=== PATIENT | male | born 2000 | race Caucasian/White ===

== ENCOUNTER 2020-05-12 11:01 | Emergency (ER) | payer OTHER, SELFPAY ==
--- NOTE | ~2020-05-12 | XR_ITS ---
EXAMINATION: XR chest 2V DATE: 05/12/2020 12:34 INDICATION: Cough and shortness of breath TECHNIQUE: Frontal and lateral views of the chest are obtained COMPARISON: None available FINDINGS: The lungs are free of acute opacities. There is no pleural effusion or pneumothorax. The ca rdiomediastinal silhouette is normal. The visualized bones and soft tissues are unremarkable. IMPRESSION: 1. No acute cardiopulmonary abnormality. Reviewed, dictated and finalized at location A.
[2020-05-12 11:12] VITALS: BP 128/79; PULSE 74; RESP 17; TEMP 36.8; O2SAT 99
--- NOTE | 2020-05-12 11:15 | ECG_ITS ---
Measurements Intervals Arnold Rate: 72 P: -8 OK: 130 QRS: 77 QRSD: 80 T: 47 QT: 362 QTc: 396 Interpretive Statements SINUS RHYTHM NORMAL ECG Electronically Signed On 05-12-2020 14:07:37 CDT by Matthew Charlton D.O.
[2020-05-12 11:37] LABS: Basophils Percent Auto 0.5 % (0.2-1.2); Eosinophils Absolute Auto 0.2 K/mm3 (0-0.3); Eosinophils Percent Auto 2.1 % (0-4.4); Hematocrit 46.5 % (42.0-52.0); Hemoglobin 15.8 g/dL (14.0-18.0); Immature Granulocyte Absolute 0.01 K/mm3 (0.00-0.031); Immature Granulocyte Percent A 0.1 % (0-0.5); Lymphocytes Absolute Auto 1.71 K/mm3 (0.9-3.2); Lymphocytes Percent Auto 22.9 % (18.3-44.2); Mean Corpuscular Hemoglobin 29.8 pg (26-34); Mean Corpuscular Volume 87.6 fl (80-100); Mean Platelet Volume 11.5 fl (7.4-10.4); Monocytes Absolute Auto 0.6 K/mm3 (0.1-0.6); Monocytes Percent Auto 7.5 % (2.6-8.5); Neutrophils Percent Auto 66.9 % (45.5-73.1); Platelet Count Result 208 k/mm3 (150-375); Red Blood Count 5.31 M/mm3 (4.6-6.20); White Blood Count 7.5 K/mm3 (4.5-10.0)
[2020-05-12 11:48] LABS: INR 0.9; Prothrombin Time 11.6 Seconds (11.1-14.7)
[2020-05-12 11:49] LABS: Blood Urea Nitrogen 14 mg/dL (9-20); Calcium 9.2 mg/dL (8.4-10.2); Carbon Dioxide 26 mmol/L (22-30); Chloride 104 mmol/L (98-107); Estimated CRCL calculation 104 ml/min; Estimated Glomerular Filt Rate > 60; Glucose 114 mg/dL (75-110); Partial Thromboplastin Time 27.6 SECONDS (22.3-36.8); Potassium 4.2 mmol/L (3.4-5.0); Sodium 138 mmol/L (137-145)
--- NOTE | 2020-05-12 11:56 | ED.GENADULT ---
HPI - General Adult General Chief complaint: Unspecified Stated complaint: multiple complaints x1 week Time Seen by Provider: 05/12/20 11:56 Source: patient and family Mode of arrival: ambulatory Limitations: no limitations History of Present Illness HPI narrative: Patient is a 20-year-old male who presents for evaluation of chest pain, shortness of breath. Patient states symptoms have been ongoing over the past month. He reports cough with some wheezing. Patient does vape and uses marijuana daily. Patient denies fever or chills. He reports a sore sensation in his chest. Patient's mother has a history of factor V Leiden, there is a history of blood clot in the family. Patient has no history of blood clot. He is not on any anticoagulation. No chest wall trauma. No fever or chills. No current shortness of breath. Patient also denies any current chest pain, he states the pain is very spontaneous and does not necessarily occur with exertion. No syncopal events. No current lightheadedness or dizziness. No calf pain or tenderness. Patient does not have any history of asthma. Related Data Allergies Allergy/AdvReac Type Severity Reaction Status Date / Time No Known Allergies Allergy Verified 05/12/20 11:14 Review of Systems Review of Systems: Narrative: CONSTITUTIONAL: Denies fever, chills, or sweats. EYES: Denies visual changes, redness, or discharge. ENT: Denies rhinorrhea, congestion, sore throat, or otalgia. CARDIOVASCULAR: Reports chronic chest pain, denies palpitations or edema RESPIRATORY: Denies cough, reports intermittent shortness of breath GASTROINTESTINAL: Denies abdominal pain, nausea, vomiting, or diarrhea. GENITOURINARY: Denies dysuria or hematuria. SKIN: Denies rash or itching. MUSCULOSKELETAL: Denies back pain, joint pain, or myalgia. NEUROLOGIC: Denies headache, numbness, or weakness. [facility] Past Medical History Medical History (Updated 05/12/20 @ 13:15 by Amy Barone MD) No pertinent past medical history Surgical History Surgical History (Updated 05/12/20 @ 13:12 by Amy Barone MD) History of appendectomy Social History Social History (Updated 05/12/20 @ 13:13 by Amy Barone MD) Smoking status: Current every day smoker Tobacco type: e-cigarettes/vaping Alcohol intake: never Substance use: current Substance use type: marijuana Gender identity (if verbalized by the patient): Male Exam Narrative: Exam Narrative: GENERAL: Awake, alert, conversant HEAD: Normocephalic, atraumatic. EYES: PERRLA and EOMI. ENT: Nares clear, no rhinorrhea or epistaxis. Mucous membranes moist. NECK: Supple. CHEST: No respiratory distress, breathing even and non labored, no chest wall tenderness, no wheezing HEART: Regular rate, sinus rhythm ABDOMEN:Non distended, non tender EXTREMITIES: Normal range of motion. No edema. No calf tenderness bilaterally. SKIN: Warm, dry, no rash. NEURO:No focal deficits. Alert and oriented x3 Course Vital Signs Vital signs: Vital Signs Temperature 36.8 C 05/12/20 11:12 Pulse Rate 74 05/12/20 11:12 Respiratory Rate 17 05/12/20 11:12 Blood Pressure 128/79 05/12/20 11:12 Pulse Oximetry 99 05/12/20 11:12 Temperature 36.8 C 05/12/20 11:12 Pulse Rate 73 05/12/20 12:21 Respiratory Rate 16 05/12/20 12:21 Blood Pressure 128/79 05/12/20 11:12 Pulse Oximetry 100 05/12/20 12:20 Medical Decision Making MDM Narrative Medical decision making narrative: Patient's EKG and labs are without significant high risk changes. Cardiac risk factors reviewed. Patient is felt low risk for ACS and reasonable for further risk stratification testing as an outpatient. Pain was not sudden or maximal or onset without tearing or ripping quality. No other signs or symptoms to suggest aortic dissection. A low risk well's criteria is noted, PE is felt to be unlikely. D-dimer is also not elevated making this even less likely. No pneumonia seen
[2020-05-12 12:00] LABS: Troponin I < 0.012 ng/mL (0.000-0.034)
[2020-05-12] MEDS: IPRATROPIUM BR 0.02% INH SOLN 0.5 MG/2.5 ML VIAL INHALATION (12:18)
[2020-05-12] MEDS: ALBUTEROL SULFATE NEB 2.5 MG/0.5 ML INH 5 MG INHALATION (12:18)
[2020-05-12 12:20] VITALS: PULSE 73; RESP 16; O2SAT 100
[2020-05-12 12:21] VITALS: PULSE 73; RESP 16
[2020-05-12 12:25] LABS: D Dimer 0.27 ug/mL (<0.48)
[2020-05-12] MEDS: KETOROLAC (*BKC) 60 MG/2 ML VIAL 30 MG IM (12:45)
[2020-05-12 14:09] VITALS: BP 124/80; PULSE 80; RESP 18; TEMP 36.7; O2SAT 99
== END 2020-05-12 14:10 | disposition home or self-care (01) ==
PROVIDERS: Emergency Provider Emergency Medicine; PCP Orthopaedic Surgery
DX: R07.89 Other chest pain (principal); F17.290 Nicotine dependence, other tobacco product, uncomplicated
CPT/HCPCS: 36415; 71046; 80048; 84484; 85025; 85380; 85610; 85730; 93005; 94640; 96372; 99284; J1885

== ENCOUNTER 2022-07-08 00:06 | Emergency (ER) | payer OTHER, SELFPAY ==
[2022-07-08 00:07] VITALS: BP 156/91; PULSE 106; RESP 14; TEMP 36.5; O2SAT 100
--- NOTE | 2022-07-08 01:54 | ED.GENADULT ---
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 patient had exposure over 1 month ago and had a level of 65 when he was tested by Occupational [facility]. 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 He had a direct exposure to lead yesterday and he was very concerned about his levels. He has been having significant anxiety and difficulty sleeping because of this. He has an appointment tomorrow with the [facility] who is managing his lead levels. Related Data Allergies Allergy/AdvReac Type Severity Reaction Status Date / Time No Known Allergies Allergy Verified 07/08/22 00:07 Review of Systems Review of Systems: CONSTITUTIONAL: Denies night sweats. EYES: No eye pain ENT: Denies rhinorrhea CARDIOVASCULAR: Denies palpitations RESPIRATORY: Denies hemoptysis GASTROINTESTINAL: Denies hematemesis GENITOURINARY: Denies hematuria. SKIN: Denies rash MUSCULOSKELETAL: Denies myalgia. NEUROLOGIC: Denies weakness. PSYCHIATRIC: Denies delusions PMF Past Medical History Medical History (Updated 07/08/22 @ 02:01 by Arpan Elliott MD) No pertinent past medical history Surgical History Surgical History (Updated 05/12/20 @ 13:12 by Amy Barone MD) History of appendectomy Social History Social History (Updated 05/12/20 @ 13:13 by Amy Barone MD) Smoking status: Current every day smoker Tobacco type: e-cigarettes/vaping Alcohol intake: never Substance use: current Substance use type: marijuana Gender identity (if verbalized by the patient): Male Exam Narrative: APPEARANCE: Patient appears anxious Head atraumatic. EYES: PERRLA/EOMI, NOSE: Normal no drainage NECK: Supple, Trachea midline RESPIRATORY: CTAB, No increased work of breathing. CARDIOVASCULAR: S1S2 appreciated ABDOMINAL: Soft, nontender, nondistended, MUSCULOSKELETAl: No obvious deformities NEURO: Alert. Moving 4/4 extremities SKIN:: Warm, dry. Normal color, patient has some small, well healing rosario over his forearms PSYCHIATRIC: Normal affect Course Vital Signs Vital signs: Vital Signs Temperature 97.7 F 07/08/22 00:07 Pulse Rate 106 H 07/08/22 00:07 Respiratory Rate 14 07/08/22 00:07 Blood Pressure 156/91 H 07/08/22 00:07 Pulse Oximetry 100 07/08/22 00:07 Oxygen Delivery Room Air 07/08/22 00:07 Temperature 97.7 F 07/08/22 00:07 Pulse Rate 106 H 07/08/22 00:07 Respiratory Rate 14 07/08/22 00:07 Blood Pressure 156/91 H 07/08/22 00:07 Pulse Oximetry 100 07/08/22 00:07 Oxygen Delivery Room Air 07/08/22 00:07 Medical Decision Making MDM Narrative Medical decision making narrative: This is a 22-year-old male presenting ED to obtain his lead blood levels. Patient is going to his [facility] tomorrow for management for his lead exposure. Lead levels are a send out in this emergency department. We would not receive the lead levels before his [facility]. The patient's physical complaints seem more related to his anxiety over the exposure. The patient is well-appearing with stable vital signs. He will be discharged and follow-up with occupational health at his appointment tomorrow. Vital Signs Vital Signs: Vital Signs Temperature 97.7 F 07/08/22 00:07 Pulse Rate 106 H 07/08/22 00:07 Respiratory Rate 14 07/08/22 00:07 Blood Pressure 156/91 H 07/08/22 00:07 Pulse Oximetry 100 07/08/22 00:07 Oxygen Delivery Room Air 07/08/22 00:07 Temperature 97.7 F 07/08/22 00:07 Pulse Rate 106 H 07/08/22 00:07 Respiratory Rate 14 07/08/22 00:07 Blood Pressure 156/91 H 07/08/22 00:07 Pulse Oximetry 100 07/08/22 00:07 Oxygen Delivery Room Air 0
[2022-07-08 02:04] VITALS: BP 146/101; PULSE 89; RESP 18; O2SAT 99
== END 2022-07-08 02:45 | disposition home or self-care (01) ==
PROVIDERS: Emergency Provider Emergency Medicine
DX: Z77.011 Contact with and (suspected) exposure to lead (principal); F17.290 Nicotine dependence, other tobacco product, uncomplicated; F12.90 Cannabis use, unspecified, uncomplicated
CPT/HCPCS: 99281